=== PATIENT | female | born 1960 | race Caucasian/White ===

== ENCOUNTER → 2021-07-08 | Outpatient (CLI) | payer OTHER, SELFPAY ==
[2021-07-08 09:18] LABS: Hematocrit 44.6 % (37-47); Hemoglobin 15.1 g/dL (12.0-15.0); Mean Corp Hgb Conc 33.9 g/dL (32-36); Mean Corpuscular Hgb 28.5 pg (27.0-32.0); Mean Corpuscular Volume 84.3 fL (81-99); Mean Platelet Vol. 9.2 fl (6.2-12.0); Platelet Count 238 K/mm3 (150-450); RBC Distribution Width CV 13.1 % (11.6-14.6); RBC Distribution Width SD 40.2 fl (35.1-43.9); Red Blood Count 5.29 M/mm3 (4.2-5.4); White Blood Count 6.2 K/mm3 (4.4-11.0)
[2021-07-08 10:06] LABS: ALB/GLOB Ratio 1.1 RATIO (0.9-2.4); AST(SGOT) 25 U/L (15-37); Alanine Aminotransfer ALT/SGPT 43 U/L (13-56); Albumin, Serum 3.7 g/dL (3.2-5.0); Alkaline Phosphatase 67 U/L (45-117); Anion Gap 4 (5-15); BUN 16 mg/dL (7-18); BUN/Creat Ratio 16.2 RATIO (10-20); Calcium,Total 9.2 mg/dL (8.5-10.1); Chloride 109 mmol/L (98-107); Cholesterol 161 mg/dL (200); Creatinine, Serum 0.99 mg/dL (0.55-1.02); EST Glomerular Filtration Rate 61 mL/min (>60); Est Glom Filt Rate - Afr Amer 73 mL/min (>60); Globulin 3.4 g/dL (2.2-4.2); Glucose 118 mg/dL (74-106); High Density Lipoprotein 40 mg/dL; Potassium 4.2 mmol/L (3.5-5.1); Protein, Total 7.1 g/dL (6.4-8.2); Sodium Level 141 mmol/L (136-145); Triglycerides 104 mg/dL; Very Low Density Lipoprotein 21 mg/dL (5-40)
[2021-07-10 09:49] LABS: HIV - WCH Non-Reactive (Nonreactive)
== END | disposition home or self-care (01) ==
LOC: LAB 08:56
PROVIDERS: PCP Internal Medicine; Referring Provider Internal Medicine; Visit Provider Internal Medicine
DX: I10 Essential (primary) hypertension (principal); Z13.6 Encounter for screening for cardiovascular disorders; Z11.4 Encounter for screening for human immunodeficiency virus [HIV]
CPT/HCPCS: 36415; 80053; 80061; 85027; 86703

== ENCOUNTER 2021-08-20 14:47 | Emergency (ER) | payer OTHER, SELFPAY ==
[2021-08-20 14:48] VITALS: BP 150/86; PULSE 82; RESP 14; TEMP 36.7; O2SAT 95; BMI 34.7
--- NOTE | 2021-08-20 15:05 | RAD_ITS ---
STUDY: X-RAY - LEFT ANKLE REASON FOR EXAM: Female, 60 years old. trauma TECHNIQUE: 3 view(s) of the ankle. COMPARISON: None. FINDINGS: Normal visualized distal tibia and fibula. Acute slightly distracted transverse fracture through the base the medial malleolus the tibia. Tiny nondisplaced oblique fractures of the posterior malleolus the tibia. Normal tibiotalar articulation and ankle mortise. Normal visualized talus and calcaneus. Small plantar calcaneal enthesophyte. The visualized subtalar, talonavicular, calcaneocuboid and tarsal articulations are normal. Medial lateral soft tissue swelling. RAD/Ankle min 3 Views IMPRESSION: 1. Acute slightly distracted transverse fracture the base the medial malleolus the tibia. 2. Tiny nondisplaced oblique fracture the posterior malleolus the tibia. 3. Diffuse soft tissue swelling. Electronically Signed: Peña Riley MD at 15:49 EDT ,
--- NOTE | 2021-08-20 15:43 | ED.VIS.LOWEX ---
HPI History of Present Illness Chief Complaint: Lower Extremity Injury Informant: patient Narrative Narrative: Patient slipped walking down a hill after cleaning out the chicken coop. She had left ankle pain. She states it swelled up pretty quickly but the swelling is little better now. She states it hurts to walk on. She has no other injury. Does not have history of prior surgery there. Not on blood thinners. She has mild blood pressure only. Never hit her head. No back pain. No numbness tingling or weakness. PFSH PFSH Medical History Anemia COVID-19 Essential hypertension History of pneumonia Seasonal allergies Vitamin D deficiency Home Medications lisinopril 20 mg-hydrochlorothiazide 12.5 mg tablet 0.5 tab PO DAILY #45 tabs 07/25/21 [Rx Last Taken Unknown] multivitamin 1 tab PO DAILY 07/25/21 [History Last Taken Unknown] oxycodone-acetaminophen 5 mg-325 mg tablet (Percocet) 1 tab PO Q6H PRN pain 3 days #10 tabs 08/20/21 [Rx Last Taken Unknown] Allergy/AdvReac Type Severity Reaction Status Date / Time Penicillins Allergy Mild Hives Verified 08/20/21 14:49 Family History Mother Heart disease Hypertension Cancer breast, colon and lung COVID-19 Colon cancer Breast cancer Father CVA (cerebral vascular accident) Hypertension Cancer multiple myeloma Brother Hemochromatosis Melanoma Surgical History History of endometrial ablation History of tonsillectomy Tubal ligation status Social History household members: spouse current occupational status: employed current occupation: [employer] Smoking Status: Never smoker Electronic Cigarette Use: not used alcohol intake: never substance use type: does not use do you feel safe at home: Yes ROS ROS ED Constitutional Constitutional ED: Denies chills or fever(s) Cardiovascular Cardiovascular: Denies chest pain Respiratory/Chest Respiratory/Chest: Denies cough or dyspnea Gastrointestinal Gastrointestinal: Denies nausea Musculoskeletal Musculoskeletal: Reports arthralgias and other Details: Left ankle pain. History of present illness ; Denies back pain or neck pain Integumentary Denies Abrasions Neurologic Neurologic: Denies paresthesias or weakness Hematologic/Lymphatic Hematologic/Lymphatic: Denies easy bleeding or easy bruising EXAM Physical Exam Const Vital Signs: 08/20/21 14:48 Temperature 98.1 F Temperature Source Temporal Pulse Rate 82 Respiratory Rate 14 Blood Pressure 150/86 H Blood Pressure Mean 107 Pulse Ox 95 Oxygen Delivery Method Room Air Positive well nourished and well developed General Appearance ED: well developed and NAD HEENT normocephalic and atraumatic Resp normal respiratory effort Extremity Extremity Narrative: There is some mild swelling diffusely around the left ankle. There is no tenderness at the knee or proximal fibula, calcaneus or proximal fifth metatarsal. Achilles is intact by palpation and Golden test. Ankle was not stressed pending x-rays. No mid or forefoot tenderness. No toe tenderness. No gross deformity. Neuro no sensory deficits noted Motor Exam: strength 5/5 throughout Skin no wounds Skin Narrative: No laceration. MDM MDM MDM Narrative Medical decision making narrative: Three-view x-ray of the left ankle looked at by me shows medial malleolar fracture that is overall in good position. There is suspicion of a posterior malleolar small chip. Mortise overall looks preserved. Boehler's angle looks normal. Plan will be a boot orthosis. We will get a walker/crutches for her. This should be nonweightbearing. She will need close follow-up. It was explained that it is possible this could need surgery. However, if this stays in good position it is also possible can be treated nonsurgically. We will leave that up to orthopedics and they are review of the images as well as repeat images. I will place her in the boot orthosis at this time as this will allow swelling but will also accommodate if swelling goes down to hold good position. Patient does have a walker at home. It was her [id number] and they just got it because of this injury. I recommend she use that with nonweightbearing until seen by orthopedics. Patient does not want anything for pain here. She states is not hurting that much. Radiography Diagnostic Testing: Clinical Impression(s) from Imaging Studies Ankle X-Ray 08/20/21 15:05 IMPRESSION: 1. Acute slightly distracted transverse fracture the base the medial malleolus the tibia. 2. Tiny nondisplaced oblique fracture the posterior malleolus the tibia. 3. Diffuse soft tissue swelling. Electronically Signed: Peña Riley MD at 15:49 EDT , Discharge Plan Triage Chief Complaint: Lower Extremity Injury ED Provider: Chaka Bar Dx/Rx/DC Orders Clinical Impression: Closed bimalleolar fracture of left ankle, Fall from slip, trip, or stumble Instructions: ED Ankle Fracture Prescriptions: New oxycodone-acetaminophen [Percocet] 5-325 mg tablet 1 tab PO Q6H PRN (Reason: pain) 3 Days Qty: 10 0RF No Action multivitamin Tablet 1 tab PO DAILY lisinopril-hydrochlorothiazide 20-12.5 mg tablet 0.5 tab PO DAILY Qty: 45 1RF Primary Care Provider: Lilian Mohamud Referrals: Lilian Mohamud MD [Primary Care Provider] - Moose Miller MD [STAFF PHYSICIAN] - As soon as possible Disposition Disposition: Home, Self Care
[2021-08-20 15:59] VITALS: RESP 16
== END 2021-08-20 16:18 | disposition home or self-care (01) ==
PROVIDERS: Emergency Provider Emergency Medicine; PCP Internal Medicine; Visit Provider Emergency Medicine
DX: S82.842A Displaced bimalleolar fracture of left lower leg, initial encounter for closed fracture (principal); I10 Essential (primary) hypertension; Z86.16 Personal history of COVID-19; Z79.899 Other long term (current) drug therapy; W19.XXXA Unspecified fall, initial encounter
CPT/HCPCS: 73610; 99283

== ENCOUNTER 2021-08-31 05:54 | Day surgery (SDC) | payer OTHER, SELFPAY ==
--- NOTE | 2021-08-29 09:05 | EKG12_ITS ---
Test Reason : Blood Pressure : / mmHG Vent. Rate : 075 BPM Atrial Rate : 075 BPM P-R Int : 172 ms QRS Dur : 096 ms QT Int : 386 ms P-R-T Axes : 027 038 028 degrees QTc Int : 431 ms Normal sinus rhythm with sinus arrhythmia Normal ECG Confirmed by HODAN YORK, FIDELIA ([id number]), advertising editor GRACIELA SORIANO ([id number]) on 08/30/2021 8:19:58 AM Referred By: Jae Gomez Confirmed By:FIDELIA PETTIT MD
[2021-08-31] MEDS: Lactated Ringers 1,000 ML 15 ML IV ×2 (06:10→08:45)
[2021-08-31 06:35] VITALS: BP 153/94; PULSE 72; RESP 16; TEMP 37.2; O2SAT 97; BMI 36.6
--- NOTE | 2021-08-31 07:12 | PCM.HP.STD ---
HPI - General General Date of Admission: 08/31/21 HPI Narrative This is a 61-year-old female with history of hypertension who sustained a mechanical fall and twisting injury to her left ankle 08/20/2021. She was walking down the wet grassy hill side, slipped and her left ankle went underneath her. She noted immediate pain and inability bear weight. She was seen in the emergency department at [facility] the day of injury. X-rays revealed a displaced medial malleolus fracture with syndesmotic widening. She followed up with my partner Dr. Moose Miller 08/23/2021. Dr. Miller obtain full-length tib-fib films as well as a gravity stress view which demonstrated syndesmotic widening as well as a proximal fibula fracture consistent with a Maisonneuve injury. Dr. Miller contacted me to expedite surgical intervention due to the unstable nature of the fracture. I agreed after reviewing films. Surgery was arranged. I saw the patient in preoperative holding area and performed a full H&P. She denies any fevers, chills, nausea vomiting, chest pain or shortness of breath. Denies any numbness or tingling in the left ankle. Denies any other injury. Patient been nonweightbearing in a boot since injury. [facility] Medical History (Updated 08/31/21 @ 07:[address] Jae Gomez DO) Anemia COVID-19 Essential hypertension History of edema History of pneumonia Non-smoker Post-menopausal Seasonal allergies Shortness of breath on exertion Vitamin D deficiency Wears glasses Home Medications lisinopril 20 mg-hydrochlorothiazide 12.5 mg tablet 0.5 tab PO DAILY #45 tabs 07/25/21 [Rx Last Taken Unknown] multivitamin 1 tab PO DAILY 07/25/21 [History Last Taken Unknown] oxycodone-acetaminophen 5 mg-325 mg tablet (Percocet) 1 tab PO Q6H PRN pain 3 days #10 tabs 08/20/21 [Rx Last Taken Unknown] Allergy/AdvReac Type Severity Reaction Status Date / Time Penicillins Allergy Mild Hives Verified 08/31/21 06:34 Family History Mother Heart disease Hypertension Cancer breast, colon and lung COVID-19 Colon cancer Breast cancer Father CVA (cerebral vascular accident) Hypertension Cancer multiple myeloma Brother Hemochromatosis Melanoma Surgical History History of endometrial ablation History of tonsillectomy Tubal ligation status Social History household members: spouse current occupational status: employed current occupation: [employer] Smoking Status: Never smoker Electronic Cigarette Use: not used alcohol intake: never substance use type: does not use do you feel safe at home: Yes ROS ROS Narrative 12 point review systems obtained, negative unless otherwise noted HPI. Vital Signs Vital Signs Vital Signs: 08/31/21 06:35 08/31/21 06:35 Temperature 99 F Temperature Source Temporal Pulse Rate 72 Respiratory Rate 16 Respiratory Pattern Normal Blood Pressure 153/94 H Blood Pressure Mean 113 Blood Pressure Source Monitor Blood Pressure Position Semi-Fowlers Blood Pressure Location Right Arm Pulse Ox 97 Oxygen Delivery Method Room Air Weight Weight: 200 lb Body Mass Index (BMI) 36.6 Physical Exam Narrative General -A&Ox3, NAD, appears stated age. Vital signs stable, afebrile. Respiratory -normal work of breathing, no intercostal retractions. CV -pulses regular, brisk capillary refill ?4 limbs. Abdomen-soft, nontender, nondistended. No guarding, rigidity, rebound tenderness. Musculoskeletal/neurologic -full range of motion nontender throughout bilateral upper extremities, right lower extremity with full sensation and strength in all dermatomes and myotomes. No midline cervical tenderness. Left lower extremity-no obvious deformity. Tenderness to palpation along the medial malleolus, syndesmosis and proximal fibula. Nontender throughout the left knee femoral shaft, tibial shaft and left foot. Brisk capillary refill. Sensation intact light touch L3-S1 dermatomes. DF, PF, EHL intact. DP, PT 2+. Pelvis is stable, nontender. Skin is intact without lacerations, abrasions. Healing ecchymosis left ankle all. Skin wrinkling present without blistering. Results Medical Records Data Attestation: I reviewed the patient's medical records X-rays reviewed from 08/20/2021 left ankle demonstrated a displaced medial malleolus fracture as well as syndesmotic widening. Small posterior malleolus avulsion fracture noted. Assessment & Plan Assessment/Plan (1) Maisonneuve fracture of left fibula: PLAN: Plan for open reduction internal fixation left ankle medial malleolus and syndesmosis. I reviewed the procedure with the patient as well as the risks, benefits, alternatives to the procedure. Risks included but are not limited to bleeding, infection, loss of limb, need for additional surgery, posttraumatic arthritis, instability, nonhealing bones or wounds, malunion or nonunion, symptomatic hardware, neurovascular injury, DVT or PE. Patient expressed understanding these risks wished proceed with surgery. Informed consent obtained. Plan for same-day surgery with expected discharge to home following surgery.
[2021-08-31] MEDS: Clindamycin 600 MG/50 ML BAG 100 MG IV (07:30)
--- NOTE | 2021-08-31 07:45 | RAD_ITS ---
STUDY: X-RAY - LEFT ANKLE REASON FOR EXAM: Female, 61 years old. FX TECHNIQUE: 2 view(s) of the ankle. COMPARISON: Comparison is made with prior study dated 08/20/2021. FINDINGS: Intraoperative imaging provided for open reduction and fixation of the bilateral malleolar fractures. RAD/Ankle 2 Views IMPRESSION: Intraoperative imaging provided for ORIF of the bilateral malleolar fractures. Electronically Signed: Bryan Sen MD at 10:08 EDT ,
--- NOTE | 2021-08-31 08:47 | OP.PCM_ITS ---
Report of Operation Date of Procedure: 08/31/21 Description of Surgical Findings:: Preoperative diagnosis: Left ankle trimalleolar equivalent Maisonneuve fracture with syndesmotic instability Postoperative diagnosis: Left ankle trimalleolar equivalent Maisonneuve fracture with syndesmotic instability Procedure: 1. Open reduction internal fixation left ankle medial malleolus 2. Open reduction internal fixation left syndesmosis Surgeon: Jae Gomez DO Anesthesia: General endotracheal with Popliteal and Saphenous N. Block Tile Layer Helper: Gaurav Wu CRNA Gliding Pilot Instructor: BRIDGER Castle Complications: None Drains: None Estimated blood loss: 25 cc Urinary output: None recorded IV fluids: 1 L crystalloid Specimens: None Surgical implants: [employer] 4 hole straight syndesmosis plate, SynchFix x 2, 60 mm cannulated 4.0 mm cancellous lag screw, 3.5 mm x 48 mm cortical screw Surgical indications: This is a 61-year-old female with history of hypertension who sustained a mechanical fall and twisting injury to her left ankle 08/20/2021. She was walking down the wet grassy hill side, slipped and her left ankle went underneath her. She noted immediate pain and inability bear weight. She was seen in the emergency department at [facility] the day of injury. X-rays revealed a displaced medial malleolus fracture with syndesmotic widening. She followed up with my partner Dr. Moose Miller 08/23/2021. Dr. Miller obtain full-length tib-fib films as well as a gravity stress view which demonstrated syndesmotic widening as well as a proximal fibula fracture consistent with a Maisonneuve injury. I recommended open reduction internal fixation left medial malleolus and syndesmosis. I reviewed the risk, benefits, alternatives to the procedure with the patient. The risks include but are not limited to bleeding, infection, loss of life or limb, risk of anesthesia, risk of nerve block, persistent pain, nonunion, malunion, posttraumatic arthritis, instability, need for additional surgery, failure of orthopedic hardware, persistent limp or need for assistive device. Patient expressed understanding of these risks and wished to proceed. Description of procedure: Patient was seen in preoperative holding area. They were identified by name, medical record number, date of . The operative extremity was marked with a surgical marker. We confirmed informed consent with the patient and all questions were answered to her satisfaction. In the preoperative holding area, a popliteal and saphenous nerve block were administered by the anesthesia staff. At time of the procedure, patient was brought to the operative suite and positioned supine on a standard operating table. All bony prominences were well-padded. [General] Anesthesia was administered. After adequate anesthesia, a well-padded pneumatic tourniquet was applied to the left upper thigh. A large bump was placed in the patient's left hip. The left lower extremity was elevated on bath blankets for fluoroscopic imaging and access to the limb during surgery. We secured this with tape as well as the nonoperative extremity. We then performed a timeout with all parties in attendance and agree with the side, site, operation to be performed. No concerns were voiced and elected to proceed. 900 mg clindamycin was administered prior to incision by the anesthesia staff. We then prepped and draped the operative extremity using a ChloraPrep. While stabilizing the ankle, the operative extremity was exsanguinated with an Esmarch bandage. Tourniquet was inflated to 250 mmHg. Esmarch was removed. I planned a longitudinal incision overlying the medial malleolus. Approximately 4 cm incision was made sharply through skin and subcutaneous tissue along the medial malleolus. Crossing vessels were cauterized. Periosteum was disrupted and fracture site was easily identified. Transverse fracture was noted. I elevated 2 mm of periosteum proximal and distal to the fracture site. I then irrigated the fracture site copiously. Loose debris was removed. I drilled a police pilot hole in the proximal segment with a 2.0 mm drill bit for a pointed reduction tenaculum. Fracture was then anatomically reduced with a reduction tenaculum confirmed on orthogonal fluoroscopy. I then placed 2 K wires through the medial malleolus perpendicular to the fracture site. I measured the length of these. The posterior pin achieved bicortical fixation. I elected to drill bicortically for this hole and placed a 3.5 mm solid cortical screw. Anteriorly, I utilized a partially- threaded cancellous screw and drilled the near cortex. The screws were tightened sequentially with excellent compression across the fracture site. Clamp was removed without motion noted at the fracture site. I then turned my attention to the syndesmosis given the proximal fibula fracture and Maisonneuve injury. I made a longitudinal incision in line with the fibular shaft at the level of the syndesmosis. Approximately 3 cm incision was carried sharply through skin and subcutaneous tissue. Periosteum was elevated at this level. I then selected a 4-hole syndesmosis plate which was held in place with a K wire confirming its placement on fluoroscopy. I then drilled across the 4 cortices of the syndesmosis with the vendor supplied K wire/drill for the syndesmotic suture fixation device. This was passed parallel to the joint surface and in line with the orientation syndesmosis. K wire was removed and suture device was passed through the 4 cortices. Medial button was then attached and sequentially tightened with excellent compression across the syndesmosis. I placed an additional suture fixation device across the syndesmosis distally. This was passed and tightened in similar fashion. Final fluoroscopic images were obtained. Posterior medial malleolus fractures were anatomically reduced and stable. External rotation stress and cotton test were administered and demonstrated stable syndesmosis. Tourniquet was deflated. Hemostasis achieved with Bovie cautery. Wounds were closed in layers with buried dermal stitch utilizing 2-0 Vicryl. Skin was finally reapproximated with interrupted horizontal mattress 3-0 nylon suture. Sterile compression dressing was applied. A well-padded 3 sided AO type fiberglass splint was applied in maximal dorsiflexion. Patient tolerated procedure well without apparent complication. She was safely extubated the operative suite and transferred to PACU in stable condition. Post Operative Plan: Weightbearing: Nonweightbearing operative extremity Antibiotics: Clindamycin 900 mg x 1 dose preoperatively DVT Prophylaxis: Aspirin 81 mg twice daily to start tomorrow Dressing: Maintain splint, keep it clean dry and intact until follow-up X-Rays: 2 weeks postop in the office Pain Medication: Percocet Rx provided in the office Follow-up: 2 weeks post-operatively with me in the office
--- NOTE | 2021-08-31 08:48 | DCINST_ITS ---
Discharge Instructions Follow Up Care Test Results: Test results from this visit will be discussed in further detail at your follow- up appointment, if applicable. Discharge Plan Admission Primary Reason for Your Visit: Left ankle fixation Attending Provider: Jae Gomez Primary Care Provider: Lilian Mohamud Instructions Additional Instructions / Restrictions: Follow preprinted instructions from your surgeons office. Discharge Orders/Prescriptions Prescriptions: No Action multivitamin Tablet 1 tab PO DAILY lisinopril-hydrochlorothiazide 20-12.5 mg tablet 0.5 tab PO DAILY Qty: 45 1RF oxycodone-acetaminophen [Percocet] 5-325 mg tablet 1 tab PO Q6H PRN (Reason: pain) 3 Days Qty: 10 0RF Referrals / Follow Up: Lilian Mohamud MD [Primary Care Provider] - Jae Gomez DO [STAFF PHYSICIAN] - Within 2 Weeks Disposition Disposition (needs filled in before D/C Order can be placed): Home, Self Care
[2021-08-31 09:05] VITALS: BP 151/86; BP 153/94; PULSE 88; RESP 16; TEMP 36.3; O2SAT 95
[2021-08-31 09:15] VITALS: BP 133/86; BP 153/94; PULSE 85; RESP 16; O2SAT 96
[2021-08-31 09:30] VITALS: BP 130/84; BP 153/94; PULSE 88; RESP 16; O2SAT 97
[2021-08-31 09:42] VITALS: BP 141/86; BP 153/94; PULSE 85; RESP 16; TEMP 36; O2SAT 94
[2021-08-31 10:51] VITALS: BP 139/82; BP 153/94; PULSE 82; RESP 16; TEMP 36.1; O2SAT 97
== END 2021-08-31 10:55 | disposition home or self-care (01) ==
LOC: SDC 05:54 → AC 05:55
PROVIDERS: PCP Internal Medicine; Referring Provider Student in an Organized Health Care Education/Training Program; Visit Provider Student in an Organized Health Care Education/Training Program
PROC: (CPT 27822; principal; 2021-08-31 07:10)
DX: S82.852A Displaced trimalleolar fracture of left lower leg, initial encounter for closed fracture (principal); M25.372 Other instability, left ankle; Z86.16 Personal history of COVID-19; I10 Essential (primary) hypertension; W01.0XXA Fall on same level from slipping, tripping and stumbling without subsequent striking against object, initial encounter; Y93.01 Activity, walking, marching and hiking; Y99.9 Unspecified external cause status; Y92.9 Unspecified place or not applicable; S82.832A Other fracture of upper and lower end of left fibula, initial encounter for closed fracture; E66.8 Other obesity; Z68.36 Body mass index [BMI] 36.0-36.9, adult; M25.472 Effusion, left ankle; M25.475 Effusion, left foot
CPT/HCPCS: 27822; 27829; 01480; 64445; 64447; 73600; 76000; 93005; C1713; J7120; J2405

== ENCOUNTER 2021-11-22 10:00 | Outpatient (RCR) | payer OTHER, SELFPAY ==
--- NOTE | 2021-10-23 15:51 | HP.PTEVAL_ITS ---
Patient's Visit Information IGNACIO CHO is a 61 year old F referred to Physical Therapy by Dr. Jae Gomez, with a diagnosis of Left ankle trimalleolar equivalent Maisonneuve fracture with syndesmotic i. Date of Evaluation: 10/23/21 Physical Therapist: Madeleine Elias DPT - Visit Plan Frequency: 2-3x /Week Duration: 4 Weeks Plan: Focus on proprioception, edema management, ROM and muscular endurance. HEP Given IE: ankle ROM exercises, gastroc stretch with towel - Subjective Walking down a hill and went down- left landed twisted behind her. Came in iced it swelling went down then got worse and went to the ER- did x-rays - showed a fracture- had surgery August 31, [address] Gomez. She has just gotten weight bearing this week and feels that she is being a baby about it. More fearful to put weight on it than pain. WBAT. Pain is located along the medial ankle- No radiating pain. She has swelling in the foot but mostly during the day. Worst: 3/10 Agg: nothing Eases: nothing Best: 0/10 most of the time. Describes the pain as dull and achy but rarely has sharp shooting pains. Currently using a standard walker. 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 Very active before this- no specific exercise program. 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 Sleep: not disturbed- no boot at night. PMHx/Meds: no changes since surgery. - Objective Posture: fair throughout. Gait: antalgic- decreased stance on the left LE with poor heel/toe pattern- Does have short CAM boot and performs a step to pattern. Observation: compression stocking Edema: Malls: 26.5 cm Mets: 21 cm Figure 8: 52 cm. Palpation: not tender to touch ROM: DF: neutral, PF: 30 degrees, Inv: 10 degrees, Ever: 10 degrees, Knee: WNL'. Strength: Knee: 5/5, Ankle: 2+/5. SLS: unable but does weight shift 50% with discomfort. HR/TR: able but does with only 25% WB. Flex: Gastroc: severe, Solues: severe - Balance/Special Test Scores Lower Extremity Functional Score: 31 - Goals Goal 1:: Patient will be I with HEP and progression Goal Time Frame: 4-6 Weeks Goal 2:: Patient will ambulate >300 feet with a normalized gait pattern Goal Time Frame: 4-6 Weeks Goal 3:: Patient will SLS for 15 sec without LOB Goal Time Frame: 4-6 Weeks Goal 4:: Patient will report 80% improvement Goal Time Frame: 4-6 Weeks - Rehabilitation Potential Physical Therapy Diagnosis: Patient presents with hypomobility- she has decreased ROM, LE and core strength/stabilization, flex and muscular endurance s/p ankle surgery leading to increased edema, pain and difficulty with ADL's. Rehabilitation Potential: Good - Anticipated Interventions Patient/Client Instruction: Educate patient on: Benefits of Fitness Program Therapeutic Exercise to Include: Strength training, Endurance training, Balance training, Coordination, Agility training, Body mechanics, Postural training, Flexibilty training, Gait and locomotor training, Neuromotor development, Dynamic Lumbar Stabilization, Scapular Strength/Stabilization For the Purpose of:: To improve muscle performance and motor function TENS: Yes Cryotherapy (ice pack, ice massage): Yes Thermo therapy (hot pack): Yes Ultrasound (thermal/non thermal): No Vasopneumatic device: Yes Thank you for the opportunity to evaluate your patient. For Medicare and Medicare HMO plans, please review the plan of care and approve it. It will need to be FAXED BACK to us at [phone] for Medicare purposes. For Medicare only, by signing this I certify the plan of care. Please let me know if there are questions or concerns regarding this plan of care. Physician Signatur e: Date:
--- NOTE | 2021-11-22 11:01 | HP.PTDCSUM ---
It has been my pleasure to treat IGNACIO CHO referred by Dr. Jae Gomez DO, with the diagnosis of Left ankle trimalleolar equivalent Maisonneuve fracture with syndesmotic i for a total of 11 visit(s). Discharge Date: Please see the following information for a summary of their discharge status. Subjective: Patient reports that she was pretty painful in the medial ankle- she worked a long day the day before but she is back to baseline. She is wearing the ankle brace % Improvement: 90 Objective/Function: Posture: fair throughout. Gait: no deviation noted Observation: compression stocking Palpation: not tender to touch ROM: DF: 10 degrees, PF: 50 degrees, Inv: 10 degrees, Ever: 10 degrees, Knee: WNL. Strength: Knee: 5/5, Ankle: 4+/5. SLS: 8-10 seconds HR/TR: able. Flex: Gastroc: mod, Solues: mod Goal 1:: Patient will be I with HEP and progression Goal Progress: Goal Met Goal 2:: Patient will ambulate >300 feet with a normalized gait pattern Goal Progress: Goal Met Goal 3:: Patient will SLS for 15 sec without LOB Goal Progress: Progressing Goal 4:: Patient will report 80% improvement Goal Progress: Goal Met Plan: Discharge to [facility] If there are questions or concerns regarding this patient's physical therapy, please feel free to call me at [phone]. Thank you for the referral of this patient. Sincerely, Madeleine Elias, DPT Balance/Gait/Functional tests - Balance/Special Test Scores Lower Extremity Functional Score: 56
== END 2021-11-22 12:27 | disposition home or self-care (01) ==
LOC: PT 10:00
PROVIDERS: PCP Internal Medicine; Referring Provider Student in an Organized Health Care Education/Training Program; Visit Provider Student in an Organized Health Care Education/Training Program
DX: S82.862D Displaced Maisonneuve's fracture of left leg, subsequent encounter for closed fracture with routine healing (principal); X58.XXXD Exposure to other specified factors, subsequent encounter
CPT/HCPCS: 97016; 97110; 97161; 97164

== ENCOUNTER → 2021-12-15 | Outpatient (CLI) | payer OTHER, SELFPAY ==
[2021-12-15 17:05] LABS: Thyroid Stim Hormone (TSH) 1.46 uIU/mL (0.358-3.74)
== END | disposition home or self-care (01) ==
LOC: BIMLAB 15:22
PROVIDERS: PCP Internal Medicine; Referring Provider Physician Assistant; Visit Provider Physician Assistant
DX: Z13.29 Encounter for screening for other suspected endocrine disorder (principal)
CPT/HCPCS: 36415; 84443

== ENCOUNTER → 2022-01-19 | Outpatient (CLI) | payer OTHER, SELFPAY ==
--- NOTE | 2022-01-19 14:18 | BI_ITS ---
MAMMOGRAPHY - BILATERAL SCREENING REASON FOR EXAM: Female, 61 years old. Routine annual screening examination. PERTINENT HISTORY: Mother with breast cancer. TECHNIQUE: Digital bilateral breast ivelisse (3D mammographic acquisition) in the CC and MLO projections. 2-D mediolateral oblique (MLO) and craniocaudad (CC) views of both breasts were obtained. CAD: Full Field Digital Mammography with Computer Added Detection was performed. COMPARISON: Mammogram from outside hospital from 02/03/2019, 11/26/2017. FINDINGS: Breast Composition: The breasts are heterogeneously dense, which may obscure small masses. There are no dominant masses or suspicious calcifications. Stable benign-appearing bilateral axillary lymph nodes. No other significant abnormalities are identified. There has been no significant change since the prior study. BI/SCRN MAMM (CAD)W/IVELISSE BILAT IMPRESSION: Stable bilateral screening mammogram. Yearly follow-up mammogram recommended. (A) ASSESSMENT CATEGORY: BIRADS Category 2: Benign. A letter regarding these results will be sent to the patient by the facility within 30 days. Approximately 10% of breast cancers are not detected by mammography. A normal mammogram should not delay biopsy of a clinically suspicious abnormality. Electronically Signed: Tristen Zambrano, at 15:40 EST ,
== END | disposition home or self-care (01) ==
LOC: OPBI 14:17
PROVIDERS: PCP Internal Medicine; Referring Provider Internal Medicine; Visit Provider Internal Medicine
DX: Z12.31 Encounter for screening mammogram for malignant neoplasm of breast (principal); Z80.3 Family history of malignant neoplasm of breast
CPT/HCPCS: 77063; 77067

== ENCOUNTER → 2022-10-31 | Outpatient (CLI) | payer OTHER, SELFPAY ==
[2022-10-31 12:28] LABS: Absolute Lymphocyte Count 1.52 X10^3/uL (0.83-4.51); Absolute Neutrophil Count 3.7 X10^3/uL (2.0-7.7); Basophil# 0.03 X10^3/uL; Basophil% 0.5 % (0-1); Eosinophil# 0.11 X10^3/uL; Eosinophils% 1.9 % (0-5); Hematocrit 45.3 % (37-47); Hemoglobin 15.4 g/dL (12.0-15.0); Lymphocyte # 1.52 X10^3/ul (0.83-4.51); Lymphocyte % 26.4 % (19-41); Mean Corpuscular Hgb 28.8 pg (27.0-32.0); Mean Corpuscular Volume 84.7 fL (81-99); Mean Platelet Vol. 10.6 fl (6.2-12.0); Monocyte# 0.44 X10^3/uL; Monocyte% 7.6 % (0-10); NRBC Flagged by Analyzer 0 % (0-5); Neutrophil # 3.65 X10^3/uL (2.7-7.7); Neutrophil % 63.4 % (47-70); Platelet Count 189 K/mm3 (150-450); RBC Distribution Width CV 13.2 % (11.6-14.6); RBC Distribution Width SD 40.8 fl (35.1-43.9); Red Blood Count 5.35 M/mm3 (4.2-5.4); White Blood Count 5.8 K/mm3 (4.4-11.0)
[2022-10-31 13:07] LABS: ALB/GLOB Ratio 1.1 RATIO (0.9-2.4); AST(SGOT) 20 U/L (15-37); Alanine Aminotransfer ALT/SGPT 32 U/L (13-56); Albumin, Serum 3.8 g/dL (3.2-5.0); Alkaline Phosphatase 78 U/L (45-117); Anion Gap 5 (5-15); BUN 12 mg/dL (7-18); BUN/Creat Ratio 12.3 RATIO (10-20); Calcium,Total 9.5 mg/dL (8.5-10.1); Chloride 106 mmol/L (98-107); Creatinine, Serum 0.98 mg/dL (0.55-1.02); EST Glomerular Filtration Rate 61 mL/min (>60); Est Glom Filt Rate - Afr Amer 74 mL/min (>60); Globulin 3.4 g/dL (2.2-4.2); Glucose 94 mg/dL (74-106); Protein, Total 7.2 g/dL (6.4-8.2); Sodium Level 140 mmol/L (136-145)
[2022-10-31 14:12] LABS: Hemoglobin A1c 5.5 % (3.8-5.6)
== END | disposition home or self-care (01) ==
LOC: BIMLAB 08:27
PROVIDERS: PCP Internal Medicine; Visit Provider Internal Medicine
DX: R73.03 Prediabetes (principal); I10 Essential (primary) hypertension
CPT/HCPCS: 36415; 80053; 83036; 85025

== ENCOUNTER → 2023-01-21 | Outpatient (CLI) | payer OTHER, SELFPAY ==
--- NOTE | 2023-01-21 08:09 | BI_ITS ---
MAMMOGRAPHY - BILATERAL SCREENING REASON FOR EXAM: Female, 62 years old. Routine annual screening examination. PERTINENT HISTORY: Mother with breast cancer. TECHNIQUE: Digital bilateral breast ivelisse (3D mammographic acquisition) in the CC and MLO projections. 2-D mediolateral oblique (MLO) and craniocaudad (CC) views of both breasts were obtained. CAD: Full Field Digital Mammography with Computer Added Detection was performed. COMPARISON: Comparison is made with prior study January 19, 2022. FINDINGS: Breast Composition: The breasts are heterogeneously dense, which may obscure small masses. There are no dominant masses or suspicious calcifications. Stable small left axillary lymph node. No other significant abnormalities are identified. There has been no significant change since the prior study. BI/SCRN MAMM (CAD)W/IVELISSE BILAT IMPRESSION: Stable bilateral screening mammogram. Yearly follow-up mammogram recommended. (A) ASSESSMENT CATEGORY: BIRADS Category 1: Negative. A letter regarding these results will be sent to the patient by the facility within 30 days. Approximately 10% of breast cancers are not detected by mammography. A normal mammogram should not delay biopsy of a clinically suspicious abnormality. [id number] Electronically Signed: Bryan Sen MD at 12:21 EST ,
== END | disposition home or self-care (01) ==
LOC: OPBI 08:08
PROVIDERS: PCP Internal Medicine; Referring Provider Nurse Practitioner Women's Health; Visit Provider Nurse Practitioner Women's Health
DX: Z12.31 Encounter for screening mammogram for malignant neoplasm of breast (principal); Z80.3 Family history of malignant neoplasm of breast
CPT/HCPCS: 77063; 77067

== ENCOUNTER → 2023-09-16 | Outpatient (CLI) | payer OTHER, SELFPAY ==
[2023-09-20 10:10] LABS: HPV APTIMA, High Risk Negative (Negative)
== END | disposition home or self-care (01) ==
PROVIDERS: PCP Internal Medicine; Referring Provider Nurse Practitioner Women's Health; Visit Provider Nurse Practitioner Women's Health
DX: Z12.4 Encounter for screening for malignant neoplasm of cervix (principal)
CPT/HCPCS: 87624; 88175; G0145

== ENCOUNTER → 2023-09-23 | Outpatient (CLI) | payer OTHER, SELFPAY ==
--- NOTE | 2023-09-23 16:43 | US_ITS ---
PROCEDURE: ULTRASOUND OF THE FEMALE PELVIS - COMPLETE REASON FOR EXAM: Female, 63 years old. Postmenopausal bleeding TECHNIQUE: Transabdominal and Transvaginal TECHNICAL QUALITY: Adequate. COMPARISON: None. FINDINGS: The uterus is retroverted and is in a midline position. The uterus measures 8.0 x 7.0 x 5.0 cm. Diffuse heterogeneous parenchyma and diffuse fibroid infiltration of the uterine parenchyma. 3 intramural and subserosal fibroids are present in the uterine body and fundus measuring 3.7 cm, 1.4 cm, and 3.5 cm. The endometrium measures 8 mm in thickness, and is hyperechoic. There is no demonstrated endometrial mass. Normal uterine cervix. The right ovary is non-visualized. There is no visualized right adnexal mass or complex lesion. The left ovary is visualized. The left ovary measures 2.5 x 2.0 x 1.3 cm. There is no left ovarian cyst or ovarian mass. There is no visualized left adnexal mass or complex lesion. Normal color vascular flow and Doppler signal is demonstrated in both ovaries. There is no fluid in the cul-de-sac. US/Pelvic w/ Transvaginal IMPRESSION: 1. Mildly enlarged fibroid uterus. 2. If symptoms or concerns persist obtain a MRI of the pelvis with and without intravenous contrast and recommend evaluation by gynecology directly Electronically Signed: Juan Manuel Loera MD at 11:14 EDT ,
== END | disposition home or self-care (01) ==
LOC: US 16:16
PROVIDERS: PCP Internal Medicine; Referring Provider Nurse Practitioner Women's Health; Visit Provider Nurse Practitioner Women's Health
DX: R10.2 Pelvic and perineal pain (principal); N95.0 Postmenopausal bleeding
CPT/HCPCS: 76830; 76856

== ENCOUNTER → 2023-10-22 | Outpatient (CLI) | payer OTHER, SELFPAY ==
--- NOTE | 2023-10-22 | EMB_PTH ---
PATIENT: IGNACIO CHO LOC: [facility] #:[id number] AGE/SX: 63/F ROOM: RE10/22/[address]: ANGIE Rosales : 1960 BED: DIS: 10/22/2023 SPEC #: [id number] RECD: 10/22/23 16:46 STATUS: QUINTIN CODY #: [id number] SIXTO: 10/22/23 00:[address]: Johana Loja NP DEPT: SURGICAL PATHOLOGY RECD BY: Ilana Guajardo ENTERED: 10/23/23 11:58 SP TYPE: ENDOM BX/C YENNI DR: Dr. Lilian Mohamud MD Tissues: Endometrium, NOS Procedures: Surgery Specimen Level IV HEADER OPERATION: Endometrial biopsy PRE-OP DIAGNOSIS: Abnormal uterine bleeding TISSUE SUBMITTED: Endometrial lining MICROSCOPIC DIAGNOSIS Endometrium, biopsy: Rare strips of benign glandular mucosa. Benign endocervical tissue. AM.mr 10/24/2023 MICROSCOPIC DESCRIPTION Slides are reviewed. GROSS DESCRIPTION Received is one container labeled with the patient's name and not further designated. The specimen consists of multiple irregular fragments of rai-pink soft tissue mixed with mucoid tissue that in aggregate measure 2.5 x 2.0 x 0.2 cm. The specimen is totally submitted in one cassette. 10/23/2023 TC:5 CPT:16194
== END | disposition home or self-care (01) ==
PROVIDERS: PCP Internal Medicine; Referring Provider Nurse Practitioner Women's Health; Visit Provider Nurse Practitioner Women's Health
DX: N93.9 Abnormal uterine and vaginal bleeding, unspecified (principal)
CPT/HCPCS: 88305

== ENCOUNTER 2023-11-15 05:21 | Day surgery (SDC) | payer OTHER, SELFPAY ==
[2023-11-15] VITALS (7 sets, daily range): BP systolic 83–109; BP diastolic 61–89; PULSE 64–73; RESP 16–18; TEMP 36.1–36.6; O2SAT 93–100; BMI 33.8
[2023-11-15] MEDS: Lactated Ringers 1,000 ML 15 ML IV (06:02)
--- NOTE | 2023-11-15 06:30 | COLBX_PTH ---
PATIENT: IGNACIO CHO LOC: POOL U#:[id number] AGE/SX: 63/F ROOM: RE11/15/[address]: Dr. Alon Rodriguez DO : 1960 BED: DIS: 11/15/2023 SPEC #: [id number] RECD: 11/15/23 10:41 STATUS: QUINTIN GLO #: [id number] SIXTO: 11/15/23 06:[address]: Alon Rodriguez DEPT: SURGICAL PATHOLOGY RECD BY: Sohan Cosme ENTERED: 11/15/23 12:41 SP TYPE: COLON BX OTHR DR: Dr. Lilian Mohamud MD Tissues: Ascending colon Procedures: Surgery Specimen Level IV HEADER OPERATION: Colonoscopy, biopsy PRE-OP DIAGNOSIS: Encounter for screening for malignant neoplasm of colon TISSUE SUBMITTED: Ascending colon biopsy MICROSCOPIC DIAGNOSIS Ascending colon, biopsy: Tubular adenoma. 11/18/2023 MICROSCOPIC DESCRIPTION Slides are reviewed. GROSS DESCRIPTION Received in fixative is one container labeled with the patient's name and designated Ascending colon polyp biopsy. The specimen consists of one irregular fragment of light rai soft tissue that measures 0.4 x 0.2 x 0.1 cm. The specimen is totally submitted in one cassette. 11/15/2023 TC:1 CPT:48856
--- NOTE | 2023-11-15 06:33 | PCM.PRE.AN2 ---
ASA Classification* ASA Classification ASA Classification: 2 Assessment & Plan Anesthesia* Anesthesia Assessment Anesthesia Assessment: Discussed sedation and/or anesthesia options, risks, benefits, and alternatives with patient/parents/legal guardian/POA. Questions invited. The patient/parents/legal guardian/POA seems to understand and agrees to proceed with anesthesia plan. Reviewed the physical assessment, medical history, allergy history and patient home medications list prior to surgery/procedure/anesthetic and documented any changes. Performed airway and anesthesia risk assessments. Anesthesia Type Anesthesia Type: MAC History Source History Obtained from:: Patient and Chart Anesthesia Focused Assessment* Temperature: 97.8 F Pulse Rate: 70 Blood Pressure: 109/88 Respiratory Rate: 16 Pulse Ox: 100 Airway Assessment Mouth opens: >3 cm Mallampati Score: II Teeth Condition: Intact Neck Range of motion (ROM): Full ROM Focused Labs Anesthesia Preop lab: CBC WBC 5.8 K/mm3 (4.4-11.0) 10/31/22 08:27 RBC 5.35 M/mm3 (4.2-5.4) 10/31/22 08:27 Hgb 15.4 g/dL (12.0-15.0) H 10/31/22 08:27 Hct 45.3 % (37-47) 10/31/22 08:27 Plt Count 189 K/mm3 (150-450) 10/31/22 08:27 CHEMISTRY Potassium 4.0 mmol/L (3.5-5.1) 10/31/22 08:27 Sodium 140 mmol/L (136-145) 10/31/22 08:27 Phosphorus 3.6 mg/dL (2.5-4.9) 12/15/21 15:25 BUN 12 mg/dL (7-18) 10/31/22 08:27 Creatinine 0.98 mg/dL (0.55-1.02) 10/31/22 08:27 Glucose 94 mg/dL (74-106) 10/31/22 08:27 TSH 1.46 uIU/mL (0.358-3.74) 12/15/21 15:23 COAG Pre-Assessment Diagnosis/Proposed Procedure Planned Operative Procedure(s): cscope Anesthesia History 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 When Was Last Pacemaker Check QUESTION #4 FULL TEXT: You/Your Family Experience fever (hyperthermia) with Anesthesia Last Oral Intake Last Oral intake: Last Oral Intake NPO since Meds taken in AM with sips of water? Meds patient instructed to take am of surgery PONV PONV - drawbench operator: PONV - drawbench operator Female Yes 11/13/23 11:55 HX of Motion Sickness No 11/13/23 11:55 HX of N/V After Surgery No 11/13/23 11:55 Non-Smoker Yes 11/13/23 11:55 Duration of Surgery greater No 11/13/23 11:55 than 60 minutes Number of Risk Factors 2 11/13/23 11:55 PONV Score Moderate Risk 11/13/23 11:55 Height & Weight Height & Weight: Anesthesia: Height & Weight Height 5 ft 2 in 11/15/23 05:55 Weight: 84 kg 11/15/23 05:55 Body Mass Index (BMI) 33.8 11/15/23 05:55 Respiratory Assessment Respiratory Assessment - drawbench operator: Respiratory Tract Infection Hx - drawbench operator Hx Respiratory Tract Infection No 11/13/23 11:55 STOP Sleep Apnea STOP Sleep Apnea - drawbench operator: STOP Sleep Apnea - drawbench operator Hx Hypertension Yes: CONTROLLED ON MED 11/13/23 11:55 Hx Sleep Apnea No 11/13/23 11:55 CPAP No 11/13/23 11:55 BIPAP Do you snore loudly (louder No 11/13/23 11:55 than talking or can be heard Do you often feel tired/ No 11/13/23 11:55 fatigued/ sleepy during daytime? Has anyone observed you stop No 11/13/23 11:55 breathing during sleep? STOP Results Negative 11/13/23 11:55 QUESTION #5 FULL TEXT : Do you snore loudly (louder than talking or can be heard through closed doors)? Tobacco Use History Tobacco Use History - drawbench operator: Tobacco Use History - drawbench operator Tobacco Use Smoking Status Never smoker 11/13/23 11:55 Hx Tobacco Use No 11/13/23 11:55 Years Smoking Packs Smoked per Day Smoking Cessation Date was within the last 15 years Hx Smoking Cessation Date Hx Smoking Cessation Counseling Hematologic Medial History Hematologic Hx - drawbench operator: Hematologic Medical Hx - manager power Hx of Blood Transfusion No 11/13/23 11:55 Hx of Transfusion in last 3 No 11/13/23 11:55 Months Date of Last Transfusion (if within last 3 months) Ever experience any problems No 11/13/23 11:55 with transfusion(s)? Specify any problems Hx of Preganancy in last 3 N/A 11/13/23 11:55 Months Nurse Filling Out Transfusion NBUCHER 11/13/23 11:55 & Questions: Date: 11/13/23 11/13/23 11:55 Time: 11:55 11/13/23 11:55 Patient unable to answer at this time (ie. confused, unrespo /Reproduction History /Reproductive History - drawbench operator: /Reproductive Hx- drawbench operator Hx Now Gestational Age (in weeks): EDC: Hx Hx Para Hx Section SAB No 11/13/23 11:55 Active Medications Active Medications: Current Medications Generic Name Dose Route Start Last Admin Trade Name Freq PRN Reason Stop Dose Admin Lactated Ringer's 1,000 mls @ 15 mls/hr 11/15/23 06:00 11/15/23 06:02 IV 15 mls/hr .Q48H GRACIE Administration PFSH Medical History Family history of colon cancer in mother Maisonneuve fracture of left fibula Wears glasses Post-menopausal Non-smoker Shortness of breath on exertion History of edema Seasonal allergies History of pneumonia Vitamin D deficiency Anemia COVID-19 Essential hypertension Home Medications ?Medication ?Instructions ?Recorded ?Last Taken ?Type loratadine 5 mg-pseudoephedrine ER 1 tab PO Q12H 10/31/22 Unknown History 120 mg tablet,extended release,12hr (Claritin-D 12 Hour) lisinopril 20 See Rx Instructions .Route 09/09/23 Unknown Rx mg-hydrochlorothiazide 12.5 mg .COMPLEX #90 tabs tablet Allergy/AdvReac Type Severity Reaction Status Date / Time Penicillins Allergy Mild Hives Verified 11/15/23 05:54 Family History Mother Heart disease Hypertension Cancer breast, colon and lung COVID-19 Colon cancer Breast cancer Father CVA (cerebral vascular accident) Hypertension Cancer multiple myeloma Brother Hemochromatosis Melanoma Surgical History Hx of colonoscopy History of ankle surgery Tubal ligation status History of tonsillectomy History of endometrial ablation Social History household members: spouse number of children: 3 current occupational status: employed current occupation: [employer] Smoking Status: Never smoker Electronic Cigarette Use: not used alcohol intake: never substance use type: does not use seatbelt use: always do you feel safe at home: Yes additional social history: - 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
--- NOTE | 2023-11-15 06:37 | PCM.HP.STD ---
HPI - General General Date of Admission: 11/15/23 Date of Service: 11/15/23 Chief Complaint: Screening colonoscopy HPI Narrative IGNACIO CHO, is a 63 F who presents today for screening colonoscopy. She had a colonoscopy approximately 2 years ago and it was normal. She does not have any abdominal pain. 90. She not a chest pain or shortness of breath. [facility] Medical History Family history of colon cancer in mother Maisonneuvniki fracture of left fibula Wears glasses Post-menopausal Non-smoker Shortness of breath on exertion History of edema Seasonal allergies History of pneumonia Vitamin D deficiency Anemia COVID-19 Essential hypertension Home Medications ?Medication ?Instructions ?Recorded ?Last Taken ?Type loratadine 5 mg-pseudoephedrine ER 1 tab PO Q12H 10/31/22 Unknown History 120 mg tablet,extended release,12hr (Claritin-D 12 Hour) lisinopril 20 See Rx Instructions .Route 09/09/23 Unknown Rx mg-hydrochlorothiazide 12.5 mg .COMPLEX #90 tabs tablet Allergy/AdvReac Type Severity Reaction Status Date / Time Penicillins Allergy Mild Hives Verified 11/15/23 05:54 Family History Mother Heart disease Hypertension Cancer breast, colon and lung COVID-19 Colon cancer Breast cancer Father CVA (cerebral vascular accident) Hypertension Cancer multiple myeloma Brother Hemochromatosis Melanoma Surgical History Hx of colonoscopy History of ankle surgery Tubal ligation status History of tonsillectomy History of endometrial ablation Social History household members: spouse number of children: 3 current occupational status: employed current occupation: [employer] Smoking Status: Never smoker Electronic Cigarette Use: not used alcohol intake: never substance use type: does not use seatbelt use: always do you feel safe at home: Yes 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 ROS Review of Systems ROS Unobtainable: other Constitutional Constitutional: Denies fatigue, fever(s), poor appetite, weight gain or weight loss ENT HEENT: Denies mouth lesions Cardiovascular Cardiovascular: Denies abdominal bloating, abdominal edema or abdominal pain Respiratory/Chest Respiratory/Chest: Denies change in mental status, change in phlegm color, chest congestion or chest tightness Gastrointestinal Gastrointestinal: Denies belching, bloating, change in bowel habits, change in stool character, chewing difficulty, coffee ground emesis, constipation, cramping, diarrhea, dyspepsia, dysphagia, early satiety, excessive flatus, fecal incontinence, heartburn, hematemesis, hematochezia, hemorrhoids, loose stools, melena, nausea, odynophagia, rectal bleeding, tenesmus, vomiting or weight changes Genitourinary Genitourinary: Denies abdominal discomfort, burning urination or itching Musculoskeletal Musculoskeletal: Reports as per HPI; Denies muscle weakness or myalgias Integumentary Integumentary: Denies jaundice Neurologic Neurologic: Denies lack of coordination or weakness Psychiatric Psychiatric: Denies confusion, depression, memory loss, mood swings, paranoia or suicidal ideation Endocrine Endocrinology: Denies systems reviewed and no addt'l complaints, except as documented Hematologic/Lymphatic Hematologic/Lymphatic: Denies anemia, easy bleeding, easy bruising or lymphadenopathy Allergic/Immunologic Allergic/Immunologic: Denies systems reviewed and no addt'l complaints, except as documented Vital Signs Vital Signs Vital Signs: 11/15/23 05:55 11/15/23 05:55 11/15/23 06:33 Temperature 97.8 F 97.8 F Temperature Source Temporal Pulse Rate 70 70 Respiratory Rate 16 16 Respiratory Pattern Normal Blood Pressure 109/88 H 109/88 H Blood Pressure Mean 95 Blood Pressure Source Monitor Blood Pressure Position Semi-Fowlers Blood Pressure Location Left Arm Pulse Ox 100 100 Oxygen Delivery Method Room Air Weight Weight: 185 lb 3.013 oz Body Mass Index (BMI) 33.8 Physical Exam Const alert General Appearance: cooperative Orientation / Consciousness: oriented to person HEENT hearing grossly normal bilaterally Head and Scalp: normal to inspection Face and Sinus: face symmetric Nose: external nose normal Mouth: oral and palatal mucosa normal Eyes conjunctivae normal General Eye: normal appearance of both eyes Neck full ROM General: normal visual inspection Lymph Lymphatic: no lymphadenopathy noted Chest inspection of chest normal and palpation of chest normal Chest: symmetrical chest wall rise Resp normal respiratory effort Effort and Inspection: able to speak in complete sentences Cardio regular rate GI non-distended Percussion: normal to percussion Rectal Exam: deferred Neuro Speech: speech normal Gait (Neuro): normal gait Assessment & Plan Assessment/Plan (1) Encounter for screening for malignant neoplasm of colon: PLAN: She was explained alternatives, risk, benefits including not withstanding bleeding, infection, sepsis, perforation, need for charge and . She will have an ASA of 3.
--- NOTE | 2023-11-15 07:00 | OP.CCLET_ITS ---
11/15/2023 Lilian Mohamud Md Re : Colonoscopy procedure for Aziza Mayer Dear Cade This procedure was performed on Wednesday, November 15, 2023. My impressions and recommendations are as follows: Impressions : - Diverticulosis in the entire examined colon. - One 5 mm polyp in the ascending colon, removed with a jumbo cold forceps. Resected and retrieved. Recommendations : - Repeat colonoscopy in 5 years for surveillance. - Continue present medications. My findings are described in the full procedure note, which is enclosed. If I can be of further assistance, please feel free to contact me at . Sincerely, Alon Rodriguez, 11/15/2023 6:59:15 AM This report has been signed electronically.
--- NOTE | 2023-11-15 07:00 | OP.COLON_ITS ---
Patient Name: Aziza Mayer Procedure Date: 11/15/2023 6:16 AM Date of : 1960 Age: 63 Procedure: Colonoscopy Indications: Screening for colorectal malignant neoplasm Providers: Alon Rodriguez DO Referring MD: Lilian Mohamud Md Medicines: Monitored Anesthesia Care Patient Profile: This is a 63 year old female. Refer to note in patient chart for documentation of history and physical. Last Colonoscopy: 10 years ago. Complications: No immediate complications. Procedure: Pre-Anesthesia Assessment: - Prior to the procedure, a History and Physical was performed, and patient medications and allergies were reviewed. The patient is competent. The risks and benefits of the procedure and the sedation options and risks were discussed with the patient. All questions were answered and informed consent was obtained. Patient identification and proposed procedure were verified by the physician in the pre-procedure area. Mental Status Examination: alert and oriented. Airway Examination: normal oropharyngeal airway and neck mobility. Respiratory Examination: clear to auscultation. CV Examination: normal. Prophylactic Antibiotics: The patient does not require prophylactic antibiotics. Prior Anticoagulants: The patient has taken no anticoagulant or antiplatelet agents except for NSAID medication. ASA Grade Assessment: II - A patient with mild systemic disease. After reviewing the risks and benefits, the patient was deemed in satisfactory condition to undergo the procedure. The anesthesia plan was to use monitored anesthesia care (MAC). Immediately prior to administration of medications, the patient was re-assessed for adequacy to receive sedatives. The heart rate, respiratory rate, oxygen saturations, blood pressure, adequacy of pulmonary ventilation, and response to care were monitored throughout the procedure. The physical status of the patient was re-assessed after the procedure. After I obtained informed consent, the scope was passed under direct vision. Throughout the procedure, the patient's blood pressure, pulse, and oxygen saturations were monitored continuously. The Colonoscope was introduced through the anus and advanced to the cecum, identified by appendiceal orifice and ileocecal valve. The colonoscopy was performed without difficulty. The patient tolerated the procedure well. The quality of the bowel preparation was adequate. The ileocecal valve, appendiceal orifice, and rectum were photographed. Scope In: 6:44:41 AM Scope Withdrawal Time 0 hours 7 minutes 46 seconds Scope Out: 6:54:44 AM Total Procedure Duration Time 0 hours 10 minutes 3 seconds Findings: The perianal and digital rectal examinations were normal. Multiple small and large-mouthed diverticula were found in the entire colon. A 5 mm polyp was found in the ascending colon. The polyp was sessile. The polyp was removed with a jumbo cold forceps. Resection and retrieval were complete. Verification of patient identification for the specimen was done. Estimated blood loss was minimal. Impression: - Diverticulosis in the entire examined colon. - One 5 mm polyp in the ascending colon, removed with a jumbo cold forceps. Resected and retrieved. Recommendation: - Repeat colonoscopy in 5 years for surveillance. - Continue present medications. Procedure Code(s): --- Professional --- 28092, Colonoscopy, flexible; with biopsy, single or multiple CPT copyright 2021 [employer]. All rights reserved. The codes documented in this report are preliminary and upon foundry equipment mechanic review may be revised to meet current compliance requirements. Alon Rodriguez DO 11/15/2023 6:59:15 AM This report has been signed electronically. Number of Addenda: 0 Note Initiated On: 11/15/2023 6:16 AM
--- NOTE | 2023-11-15 07:03 | PCM.POST.ANE ---
Anesthesia: Postop Eval I Current Vital Signs Temperature: 97 F Pulse Rate: 64 Blood Pressure: 83/61 Respiratory Rate: 16 Pulse Ox: 97 Oxygen Delivery Method: Room Air Assessment Airway patent: Yes Spontaneous unlabored respirations: Yes Mental status: Asleep nausea: No Vomiting: No Anesthesia Complication: No Fluid Hydration Crystalloid volume administer (ml): 600 Total IV fluid infused: 600 Progress Note Anesthesia document: Postop Eval 1 completed: Yes
--- NOTE | 2023-11-15 07:12 | PCM.POSTANE2 ---
Anesthesia Postop Eval I Sum Postop Eval Completion status Anesthesia document: Postop Eval 1 completed: Yes Anesthesia Postop Eval I Summary Anesthesia Postop Eval I Summary: Anesthesia Postop Eval I: Assessment Summary Airway patent Yes 11/15/23 07:04 [email or web address] Spontaneous unlabored Yes 11/15/23 07:04 [email or web address] respirations Mental status Asleep 11/15/23 07:04 [email or web address] nausea No 11/15/23 07:04 [email or web address] Vomiting No 11/15/23 07:04 [email or web address] Anesthesia Postop Eval I: Fluid Summary Crystalloid volume administer 600 11/15/23 07:04 [email or web address] (ml) Colloids volume administered ( ml) Blood Product volume administered (ml) Total IV fluid infused 600 11/15/23 07:04 [email or web address] Anesthesia Postop Eval I: Summary Notes Anesthesia Complication No 11/15/23 07:04 [email or web address] Anesthesia Complication Comment: Post-operative progress note Anesthesia: Postop Eval II Evaluation Mental status: Awake Pain Level: 0 nausea: No Vomiting: No
== END 2023-11-15 07:45 | disposition home or self-care (01) ==
LOC: EN 05:22 → AC 05:23
PROVIDERS: PCP Internal Medicine; Referring Provider Internal Medicine; Visit Provider Internal Medicine Gastroenterology
PROC: 0DJD8ZZ Inspection of Lower Intestinal Tract, Via Natural or Artificial Opening Endoscopic (ICD-10-PCS; CPT 45378; principal; 2023-11-15 06:25)
DX: Z12.11 Encounter for screening for malignant neoplasm of colon (principal); D12.2 Benign neoplasm of ascending colon; K57.30 Diverticulosis of large intestine without perforation or abscess without bleeding; Z80.0 Family history of malignant neoplasm of digestive organs; I10 Essential (primary) hypertension; J30.2 Other seasonal allergic rhinitis; Z86.2 Personal history of diseases of the blood and blood-forming organs and certain disorders involving the immune mechanism; Z79.899 Other long term (current) drug therapy
CPT/HCPCS: 45380; 88305; J7120; J2405

== ENCOUNTER → 2023-11-19 | Outpatient (CLI) | payer OTHER, SELFPAY ==
[2023-11-19 12:32] LABS: Absolute Lymphocyte Count 1.47 X10^3/uL (0.83-4.51); Absolute Neutrophil Count 3.3 X10^3/uL (2.0-7.7); Basophil# 0.04 X10^3/uL; Basophil% 0.8 % (0-1); Eosinophil# 0.13 X10^3/uL; Eosinophils% 2.5 % (0-5); Hematocrit 45.1 % (37-47); Hemoglobin 14.9 g/dL (12.0-15.0); Lymphocyte # 1.47 X10^3/ul; Lymphocyte % 27.8 % (19-41); Mean Corpuscular Hgb 27.7 pg (27.0-32.0); Mean Platelet Vol. 10.5 fl (6.2-12.0); Monocyte# 0.38 X10^3/uL; Monocyte% 7.2 % (0-10); NRBC Flagged by Analyzer 0 % (0-5); Neutrophil # 3.25 X10^3/uL (2.7-7.7); Neutrophil % 61.3 % (47-70); Platelet Count 218 K/mm3 (150-450); RBC Distribution Width CV 13.2 % (11.6-14.6); RBC Distribution Width SD 40.2 fl (35.1-43.9); Red Blood Count 5.37 M/mm3 (4.2-5.4); White Blood Count 5.3 K/mm3 (4.4-11.0)
[2023-11-19 14:06] LABS: ALB/GLOB Ratio 1.1 RATIO (0.9-2.4); AST(SGOT) 20 U/L (15-37); Alanine Aminotransfer ALT/SGPT 22 U/L (13-56); Albumin, Serum 3.8 g/dL (3.2-5.0); Alkaline Phosphatase 73 U/L (45-117); Anion Gap 6 (5-15); BUN 16 mg/dL (7-18); BUN/Creat Ratio 17.4 RATIO (10-20); Bilirubin, Direct 0.22 mg/dL (0.00-0.30); Calcium,Total 9.8 mg/dL (8.5-10.1); Chloride 106 mmol/L (98-107); Cholesterol 147 mg/dL (200); Creatinine, Serum 0.92 mg/dL (0.55-1.02); EST Glomerular Filtration Rate 66 mL/min (>60); Est Glom Filt Rate - Afr Amer 80 mL/min (>60); Globulin 3.5 g/dL (2.2-4.2); Glucose 106 mg/dL (74-106); High Density Lipoprotein 48 mg/dL; LDH 187 U/L (84-246); Phosphorus 3.1 mg/dL (2.5-4.9); Potassium 4.3 mmol/L (3.5-5.1); Protein, Total 7.3 g/dL (6.4-8.2); Sodium Level 139 mmol/L (136-145); Triglycerides 86 mg/dL; Uric Acid 5.3 mg/dL (2.6-6.0); Very Low Density Lipoprotein 17 mg/dL (5-40)
== END | disposition home or self-care (01) ==
LOC: BIMLAB 08:36
PROVIDERS: PCP Internal Medicine; Visit Provider Nurse Practitioner
DX: Z00.00 Encounter for general adult medical examination without abnormal findings (principal)

== ENCOUNTER → 2024-01-27 | Outpatient (CLI) | payer OTHER, SELFPAY ==
--- NOTE | 2024-01-27 09:06 | BI_ITS ---
MAMMOGRAPHY - BILATERAL SCREENING REASON FOR EXAM: Female, 63 years old. Routine annual screening examination. PERTINENT HISTORY: Mother with breast cancer. TECHNIQUE: Digital bilateral breast ivelisse (3D mammographic acquisition) in the CC and MLO projections. 2-D mediolateral oblique (MLO) and craniocaudad (CC) views of both breasts were obtained. CAD: Full Field Digital Mammography with Computer Added Detection was performed. COMPARISON: Comparison is made with prior study dated January 21, 2023 and January 19, 2022. FINDINGS: Breast Composition: The breasts are heterogeneously dense, which may obscure small masses. There are no dominant masses or suspicious calcifications. No other significant abnormalities are identified. There has been no significant change since the prior study. BI/SCRN MAMM (CAD)W/IVELISSE BILAT IMPRESSION: Stable bilateral screening mammogram. Yearly follow-up mammogram recommended. (A) ASSESSMENT CATEGORY: BIRADS Category 1: Negative. A letter regarding these results will be sent to the patient by the facility within 30 days. Approximately 10% of breast cancers are not detected by mammography. A normal mammogram should not delay biopsy of a clinically suspicious abnormality. [id number] Electronically Signed: Bryan Sen MD at 13:38 EST ,
== END | disposition home or self-care (01) ==
LOC: OPBI 09:06
PROVIDERS: PCP Internal Medicine; Referring Provider Nurse Practitioner Women's Health; Visit Provider Nurse Practitioner Women's Health
DX: Z12.31 Encounter for screening mammogram for malignant neoplasm of breast (principal)
CPT/HCPCS: 77063; 77067

== ENCOUNTER → 2024-12-25 | Outpatient (CLI) | payer OTHER, SELFPAY | END | disposition home or self-care (01) | LOC: LABSPEC 12-28 08:50 | PROVIDERS: PCP Internal Medicine; Referring Provider Internal Medicine; Visit Provider Internal Medicine | DX: R73.09 Other abnormal glucose (principal) | CPT/HCPCS: 83036 ==

== ENCOUNTER → 2025-01-28 | Outpatient (CLI) | payer OTHER, SELFPAY ==
--- NOTE | 2025-01-28 08:15 | BI_ITS ---
EXAM: SCRN MAMM (CAD)W/IVELISSE BILAT DATE: 01/28/2025 CLINICAL HISTORY: F, Age 64 y/o , SCREENING FOR BREAST CANCER TECHNIQUE: Procedure Code: [id number] Modality: MG Procedure: SCRN MAMM (CAD)W/IVELISSE BILAT COMPARISON: Prior exam(s) were compared FINDINGS: TISSUE DENSITY: The breasts are heterogeneously dense, which may obscure small masses. Bilateral Breast Mammographic Findings: No significant masses, calcifications or other abnormalities are identified. BI/SCRN MAMM (CAD)W/IVELISSE BILAT IMPRESSION: No mammographic evidence of malignancy. OVERALL FINAL ASSESSMENT BI-RADS 1: NEGATIVE. RECOMMENDATION: Routine annual follow-up in 1 Year Additional Recommendation none A letter with findings and recommendations will be mailed to the patient. Reading Location: [id number]
== END | disposition home or self-care (01) ==
LOC: OPBI 08:07
PROVIDERS: PCP Internal Medicine; Referring Provider Nurse Practitioner Women's Health; Visit Provider Nurse Practitioner Women's Health
DX: Z12.31 Encounter for screening mammogram for malignant neoplasm of breast (principal)
CPT/HCPCS: 77063; 77067